=== PATIENT | female | born 1980 | race Two or more races ===

== ENCOUNTER 2017-05-13 11:21 | Emergency (ER) | payer SELFPAY ==
[~2017-05-13] VITALS: Ht 157.5 cm; Wt 59.0 kg
--- NOTE | 2017-05-13 11:56 | PHYS DOC ---
Past History Past Medical History: Asthma Past Surgical History: No Surgical History Alcohol Use: Occasionally Drug Use: None Adult General Chief Complaint Chief Complaint: PAIN ON URINATION HPI HPI 36 -year-old female patient 2 complaining of urinary frequency and dysuria for the last 5 days with subjective fever and chills and nausea and lower abdominal pain that did not get better with [id number] medication and increasing of fluid intake. Patient states she had UTI previously with the same symptoms and thinks she has another UTI. Patient states she has a new sexual partner and had unprotected sex 6 days ago and the next day developed urinary symptoms and wants STD evaluation. Patient denies vaginal discharge or bleeding or pain during intercourse. Review of Systems Review of Systems Constitutional: Reports fever and chills [] Eyes: Denies change in visual acuity, redness, or eye pain [] HENT: Denies nasal congestion or sore throat [] Respiratory: Denies cough or shortness of breath [] Cardiovascular: No additional information not addressed in HPI [] GI: Reports abdominal pain, nausea, denies vomiting, bloody stools or diarrhea [ ] : Reports dysuria , hematuria [] Musculoskeletal: Denies back pain or joint pain [] Integument: Denies rash or skin lesions [] Neurologic: Denies headache, focal weakness or sensory changes [] Endocrine: Denies polyuria or polydipsia [] All other systems were reviewed and found to be within normal limits, except as documented in this note. Allergies Allergies Allergies Coded Allergies Type Severity Reaction Last Updated Verified No Known Drug Allergies 05/13/17 No Physical Exam Physical Exam Constitutional: Well developed, well nourished, mild distress, non-toxic appearance. [] HENT: Normocephalic, atraumatic, bilateral external ears normal, oropharynx moist, no oral exudates, nose normal. [] Eyes: PERRLA, EOMI, conjunctiva normal, no discharge. [] Neck: Normal range of motion, no tenderness, supple, no stridor. [] Cardiovascular:Heart rate regular rhythm, no murmur [] Lungs & Thorax: Bilateral breath sounds clear to auscultation [] Abdomen: Bowel sounds normal, soft, no tenderness, no masses, no pulsatile masses. [] Skin: Warm, dry, no erythema, no rash. [] Back: No tenderness, no CVA tenderness. [] Extremities: No tenderness, no cyanosis, no clubbing, ROM intact, no edema. [] Neurologic: Alert and oriented X 3, normal motor function, normal sensory function, no focal deficits noted. [] Psychologic: Affect normal, judgement normal, mood normal. [] Vaginal exam with present of filler and trimmer showed mild white discharge without vaginal bleeding or cervical tenderness Current Patient Data Vital Signs Vital Signs Date Time Temp Pulse Resp B/P (MAP) Pulse Ox O2 Delivery O2 Flow Rate FiO2 05/13/17 11:25 98.5 86 18 97 Room Air EKG EKG [] Radiology/Procedures Radiology/Procedures [] Course & Med Decision Making Course & Med Decision Making Pertinent Labs reviewed. (See chart for details) Evaluation of patient in ER showed 36-year-old female patient presented to ER for evaluation of UTI and STD. Patient had more than 20 WBC urine and wet mount showed WBC without trichomonas or yeast. Patient treated with 1 g of Rocephin and 1000 mg of Zithromax in ER. Plan discharge patient home with diagnosis of UTI and STD evaluation. Patient informed to follow-up with her primary care physician regarding pending GC chlamydia result. Dragon Disclaimer Dragon Disclaimer This electronic medical record was generated, in whole or in part, using a voice recognition dictation system. Departure Departure: Impression: Primary Impression: Urinary tract infection Additional Impressions: Concern about STD in female without diagnosis Bacterial vaginitis Disposition: 01 HOME, SELF-CARE (At 1317) Condition: IMPROVED Referrals: PCP,NO (PCP) Patient Instructions: Bacterial Vaginosis, Sexually Transmitted Disease, Easy- to-Read, Urinary Tract Infection Additional Instructions: Drink plenty of liquids Follow-up with your primary care physician regarding pending STD test Scripts Ibuprofen (IBUPROFEN) 800 Mg Tablet 1 TAB PO TID, #30 TAB Prov: FABRICE BILL MD 05/13/17 Metronidazole (FLAGYL) 500 Mg Tablet 4 TAB PO ONCE, #4 TAB Prov: FABRICE BILL MD 05/13/17 Ciprofloxacin Hcl (CIPRO) 250 Mg Tablet 1 TAB PO BID, #14 TAB Prov: FABRICE BILL MD 05/13/17 Problem Qualifiers FABRICE BILL MD May 13, 2017 11:56
[2017-05-13] MEDS ORDERED: cefTRIAXone SODIUM 1 GM VIAL IV ONE (12:27)
[2017-05-13 12:42] LABS: BILIRUBIN,URINE NEG (NEG); CLARITY,URINE CLOUDY; COLOR,URINE YELLOW; GLUCOSE,URINE NEG (NEG)
[2017-05-13 12:43] LABS: BACTERIA,URINE FEW /HPF (0-FEW); NITRITE,URINE NEG (NEG); RBC,URINE RARE /HPF (0-2); SQUAMOUS EPITHELIAL CELL,UR OCC /LPF; UROBILINOGEN,URINE 0.2 mg/dL (0.2 mg/dL); WBC,URINE 20-40 /HPF (0-4)
[2017-05-13 12:44] LABS: U PREG PATIENT NEGATIVE (NEG)
[2017-05-13] MEDS ORDERED: cefTRIAXone IM 1 GM VIAL IM ONE (13:00)
[2017-05-13] MEDS ORDERED: AZITHROMYCIN 250 MG TABLET. PO ONE (13:00)
[2017-05-13] MEDS ORDERED: METR500T PO (13:19)
[2017-05-13] MEDS ORDERED: IBUP800T19 PO (13:19)
[2017-05-13] MEDS ORDERED: CIPR250T30 PO (13:19)
[2017-05-13 13:29] VITALS: BP 110/70
[2017-05-14 19:12] LABS: CHLAMYDIA PROBE Negative (Negative)
== END 2017-05-13 13:31 | disposition home or self-care (01) ==
LOC: ER 11:21
DX: N39.0 Urinary tract infection, site not specified (principal); N76.0 Acute vaginitis; B96.89 Other specified bacterial agents as the cause of diseases classified elsewhere; Z20.2 Contact with and (suspected) exposure to infections with a predominantly sexual mode of transmission; J45.909 Unspecified asthma, uncomplicated
CPT/HCPCS: 36415; 81001; 81025; 87086; 87491; 87591; 96372; 99284; J0456; J0696; Q0111